=== PATIENT | female | born 1950 | race Caucasian/White ===

== ENCOUNTER 2022-05-12 11:59 | Emergency (ER) | payer MEDICARE, BC ==
[2022-05-12] MEDS ORDERED: Sodium Chloride 0.9% 1,000 ML IV STA (13:38)
[2022-05-12] MEDS ORDERED: Sodium Chloride 0.9% 10 ML Syringe FLUSH PRN (13:48)
[2022-05-12] MEDS ORDERED: Sodium Chloride 0.9% 10 ML Syringe FLUSH ONE (13:54)
[2022-05-12] MEDS ORDERED: Sodium Chloride 0.9% 100 ML IV ONE (13:54)
[2022-05-12] MEDS ORDERED: Iopamidol 612 MG/ML 100 ML Bottle IV SCH (14:00)
[2022-05-12 14:21] LABS: ESTIMATED GFR 69 mL/min (>60)
[2022-05-12] MEDS ORDERED: fentaNYL 100 MCG/2 ML SDV IVPUSH ONE ×2 (14:30→15:43)
[2022-05-12] MEDS ORDERED: Ondansetron 4 MG/2 ML SDV IVPUSH ONE (14:30)
[2022-05-12] MEDS: Sodium Chloride 0.9% 10 ML Syringe FLUSH PRN ×2 (15:31→15:57)
== END 2022-05-12 18:21 ==
LOC: JP.ED 11:59
DX: K35.30 Acute appendicitis with localized peritonitis, without perforation or gangrene (principal); I10 Essential (primary) hypertension; Z88.5 Allergy status to narcotic agent; Z79.899 Other long term (current) drug therapy
CPT/HCPCS: 36415; 74177; 80053; 81001; 83605; 83690; 85025; 96361; 96374; 96375; 96376; 99285; J2405; J3010; J3490; J7030; Q9967